=== PATIENT | female | born 1985 | race Caucasian/White ===

== ENCOUNTER → 2018-10-20 | Emergency (ER) | payer OTHER ==
[~2018-10-20] VITALS: Ht 162.6 cm; Wt 111.1 kg
[~2018-10-20] MED LIST: INTESTINEX680 M1 PO; OBSTETRIX DHA1 EACH; PROGESTERONE200 MG; ZOFRAN4 MG PO
== END | disposition home or self-care (01) ==
LOC: ER 20:31
DX: O26.891 Other specified pregnancy related conditions, first trimester (principal); K52.89 Other specified noninfective gastroenteritis and colitis; Z3A.08 8 weeks gestation of pregnancy

== ENCOUNTER 2019-05-24 06:09 | Inpatient (IN) | payer OTHER ==
[~2019-05-24] VITALS: Ht 162.6 cm; Wt 114.8 kg
[2019-05-24] MEDS ORDERED: ASPIRIN81 MG PO (07:02)
[2019-05-24] MEDS ORDERED: PRENATAL CAPLE1 EAC1 PO (07:03)
[2019-05-26] MEDS ORDERED: DOCUSATE SODIU100 MG PO (07:23)
[2019-05-26] MEDS ORDERED: ANUSOL-HC30 G2 TOP (07:23)
== END 2019-05-27 16:06 | disposition home or self-care (01) | DRG 807 ==
LOC: LDR 06:09 → OB/GYN 11:39
PROVIDERS: ADMIT Obstetrics & Gynecology
PROC: 10E0XZZ Delivery of Products of Conception, External Approach (ICD-10-PCS; principal; 2019-05-24)
PROC: 0KQM0ZZ Repair Perineum Muscle, Open Approach (ICD-10-PCS; 2019-05-24)
PROC: 10907ZC Drainage of Amniotic Fluid, Therapeutic from Products of Conception, Via Natural or Artificial Opening (ICD-10-PCS; 2019-05-24)
PROC: 3E033VJ Introduction of Other Hormone into Peripheral Vein, Percutaneous Approach (ICD-10-PCS; 2019-05-24)
PROC: 4A1HXFZ Monitoring of Products of Conception, Cardiac Rhythm, External Approach (ICD-10-PCS; 2019-05-24)
DX: O24.410 Gestational diabetes mellitus in pregnancy, diet controlled (principal); Z37.0 Single live birth; O70.1 Second degree perineal laceration during delivery; Z3A.38 38 weeks gestation of pregnancy